=== PATIENT | female | born 1955 | race Caucasian/White ===

== ENCOUNTER 2017-09-05 07:29 | Inpatient (IN) | payer BC ==
[~2017-09-05] VITALS: Ht 167.6 cm; Wt 124.0 kg
[~2017-09-05 07:29] MED LIST: HYDROCHLOROTH12.5 M3 PO; NORVASC10 MG PO; PRILOSEC OTC20 MG PO; QNASL8.7 GM BOTH NARES; RELPAX40 MG PO; SYNTHROID125 MCG PO; TOPROL XL100 MG PO; ZYRTEC10 M3 PO
[2017-09-05 08:27] VITALS: BP 129/77
[2017-09-05 15:39] VITALS: BP 135/95
[2017-09-05 15:46] VITALS: BP 135/95
[2017-09-05 19:33] VITALS: BP 137/74
[2017-09-05 23:11] VITALS: BP 138/81
[2017-09-06 03:21] VITALS: BP 132/70
[2017-09-06 05:28] LABS: BASOPHIL (%) 0.1 % (0-1); EOSINOPHIL (%) 0.1 % (0-5); HEMATOCRIT 39.2 % (36.0-46.0); HEMOGLOBIN 12.8 G/DL (11.9-15.5); IMMATURE GRANULOCYTE (%) 0.4 % (0.0-0.7); LYMPHOCYTE (%) 20.4 % (15-42); LYMPHOCYTE COUNT 1.5 K/uL (1.0-2.8); MCH 30.4 PG (29.0-34.0); MCHC 32.7 G/DL (30.0-36.0); MCV 93.1 FL (83-99); MONOCYTE (%) 8.1 % (3-12); MONOCYTE COUNT 0.6 K/uL (0-0.8); NEUTROPHIL (%) 70.9 % (45-76); NEUTROPHIL COUNT 5.1 K/uL (1.8-6.4); PLATELET COUNT 251 K/uL (156-360); RBC DIS.WIDTH-CV 12.7 % (11.8-14.6); RBC DIS.WIDTH-SD 43.5 % (39-53); RED BLOOD COUNT 4.21 M/uL (3.80-5.20); WHITE BLOOD COUNT 7.3 K/uL (4.1-10.2)
[2017-09-06 07:14] VITALS: BP 153/75
[2017-09-06] MEDS ORDERED: PROTONIX40 MG PO (11:02)
[2017-09-06] MEDS ORDERED: PERCOCET 5/31 TABLET PO (11:03)
[2017-09-06 11:30] VITALS: BP 129/76
== END 2017-09-06 12:11 | disposition home or self-care (01) | DRG 621 ==
LOC: 2SOUTH 07:29 → ENRESERV 13:35 → 2SOUTH 14:21 → ENRESERV 14:37 → 3WEST 15:12 → 2SOUTH 15:30 → ENRESERV 09-06 06:02 → 3WEST 09-06 12:11
PROVIDERS: Surgery
PROC: 0DB64Z3 Excision of Stomach, Percutaneous Endoscopic Approach, Vertical (ICD-10-PCS; principal; 2017-09-05)
DX: E66.01 Morbid (severe) obesity due to excess calories (principal); Z68.42 Body mass index [BMI] 45.0-49.9, adult; E89.0 Postprocedural hypothyroidism; I10 Essential (primary) hypertension; K21.9 Gastro-esophageal reflux disease without esophagitis; M19.90 Unspecified osteoarthritis, unspecified site; I83.90 Asymptomatic varicose veins of unspecified lower extremity; Z85.850 Personal history of malignant neoplasm of thyroid
CPT/HCPCS: 71045; 85025; C9113; J0131; J0330; J1100; J1170; J1580; J1644; J1650; J1885; J2250; J2270; J2405; J2710; J2765; J3010; J3480; J7050; J7120; Q0175; S0020